=== PATIENT | female | born 1990 | race Caucasian/White ===

== ENCOUNTER 2020-01-04 21:34 | Emergency (ER) | payer SELFPAY ==
[~2020-01-04] VITALS: Ht 162.6 cm; Wt 81.6 kg
[2020-01-04 21:38] VITALS: Ht 162.6 cm; Wt 81.6 kg
[2020-01-04 22:32] VITALS: BP 140/93
== END 2020-01-04 22:32 | disposition home or self-care (01) ==
LOC: ED 21:34
DX: U07.1 COVID-19 (principal); R06.02 Shortness of breath; R05 Cough